=== PATIENT | male | born 1945 | race Caucasian/White ===

== ENCOUNTER → 2017-04-26 | Outpatient (CLI) | payer MEDICARE ==
--- NOTE | 2017-04-27 09:44 | RSPPFT ---
DATE OF PROCEDURE: 04/26/17 COMMENTS: VOLUMES DYNAMIC: FVC and FEV1 normal. STATIC: FRC, RV and TLC normal. FLOWS: FEV1% and FEF 25-75 normal. DIFFUSION: Mildly reduced. FLOW VOLUME LOOP: Normal configuration. IMPRESSION: No significant airways obstruction or restriction with a low normal to mildly reduced diffusion capacity. Airways resistance is increased. There is minimal change post-bronchodilator.
== END ==
LOC: HRSP 09:43
PROVIDERS: ATTEND Internal Medicine
DX: R06.02 Shortness of breath (principal); R05 Cough
CPT/HCPCS: 94618; 95012